=== PATIENT | male | born 1955 | race Caucasian/White ===

== ENCOUNTER 2018-04-28 21:38 | Emergency (ER) | payer OTHER ==
[2018-04-28] MEDS ORDERED: Diphtheria,Pertussis(Acell),Tetanus Vaccine 0.5 ML SDV IM ONE (22:25)
--- NOTE | 2018-04-28 22:56 | EDM.PDOC ---
ED HPI GENERAL MEDICAL PROBLEM - General Chief Complaint: Laceration Stated Complaint: CUT THUMB ON LEFT HAND Time Seen by Provider: 04/28/18 22:23 Source of Information: Reports: Patient, RN Notes Reviewed History Limitations: Reports: No Limitations - History of Present Illness INITIAL COMMENTS - FREE TEXT/NARRATIVE: The patient states that the distal tip of his left thumb was pinched on the hinge side of a trailer door around 21:00 tonight. He is otherwise uninjured. The patient does not recall when his last tetanus vaccination was. The patient does not have a PCP; he and [place] are traveling [place] in [place]. Left 1-Thumb Pain Score (Numeric/FACES): 2 - Related Data Allergies Allergy/AdvReac Type Severity Reaction Status Date / Time KEYLA Inhibitors Allergy Facial Verified 04/28/18 21:56 Swelling Home Meds: Home Meds Aspirin [Ecotrin] 325 mg PO DAILY 04/28/18 [History] Clopidogrel [Plavix] 1 tab PO DAILY 04/28/18 [History] Doxazosin Mesylate [Cardura] 2 mg PO DAILY 04/28/18 [History] Felodipine [Felodipine ER] 5 mg PO DAILY 04/28/18 [History] Fenofibrate,Micronized [Fenofibrate] 130 mg PO DAILY 04/28/18 [History] Fish Oil/[place]-3 Fatty Acids [Fish Oil 1,000 MG] 1 cap PO DAILY 04/28/18 [ History] Levothyroxine 25 mcg PO ACBREAKFAST 04/28/18 [History] Metoprolol Succinate [Toprol XL 50mg] 50 mg PO BID 04/28/18 [History] Pantoprazole Sodium [Protonix] 20 mg PO DAILY 04/28/18 [History] Spironolactone [Aldactone] 25 mg PO DAILY 04/28/18 [History] atorvaSTATin [Lipitor] 80 mg PO BEDTIME 04/28/18 [History] Past Medical History HEENT History: Reports: Impaired Vision Cardiovascular History: Reports: CAD, High Cholesterol, Hypertension, [place] (1996) Gastrointestinal History: Reports: GERD Musculoskeletal History: Reports: Osteoarthritis Endocrine/Metabolic History: Reports: Hypothyroidism - Past Surgical History HEENT Surgical History: Reports: Detached Retina (left), Oral Surgery (wisdom teeth extraction) Cardiovascular Surgical History: Reports: Coronary Artery Stent (x 2) Neurological Surgical History: Reports: Lumbar Spine (L4, L5 discectomy & laminectomy, 1996, 1999) Musculoskeletal Surgical History: Reports: Knee Replacement (right) Social & Family History - Family History Family Medical History: Noncontributory - Tobacco Use Smoking Status *Q: Former Smoker Years of Tobacco use: 10 Packs/Tins Daily: 1.5 Month/Year Tobacco Last Used: Quit 11/02/1981 - Alcohol Use Alcohol Use History: Yes Days Per Week of Alcohol Use: 7 Number of Drinks Per Day: 1 Total Drinks Per Week: 7 Alcohol Use Frequency: Socially - Recreational Drug Use Recreational Drug Use: No - Living Situation & Occupation Living situation: Reports: , with Spouse Occupation: Retired ED ROS GENERAL - Review of Systems Review Of Systems: ROS reveals no pertinent complaints other than HPI. ED EXAM, SKIN/RASH Exam: See Below Exam Limited By: No Limitations General Appearance: Alert, WD/WN, No Apparent Distress Extremities: Other (There is a "C" shaped flap laceration to the tip of the patient's left thumb, measuring approximately 2.0 cm in length, with the attached portion on the volar aspect. There does not appear to be any skin loss , and the flap edges are well approximated. The flap is ecchymotic, but not necessarily devascularized. Neurovascular status of the left thumb is intact.) ED SKIN PROCEDURES - Laceration/Wound Repair Left Hand Lac/Wound length In cm: 2.0 Appearance: Subcutaneous, Irregular (Curvilinear flap), Clean Distal NVT: Neuro & Vascular Intact, No Tendon Injury Exploration/Debridement/Repair: Wound Explored, In a Bloodless Field, No Foreign Material Found, Wound Margins Revised Closed with: Dermabond Sterile Dressing Applied: None Tetanus Status Addressed: Yes Complications: No Course - Vital Signs Last Recorded V/S: Last Vital Signs Temp 36.4 C 04/28/18 21:49 Pulse 60 04/28/18 21:49 Resp 16 04/28/18 21:49 BP 133/85 04/28/18 21:49 Pulse Ox 95 04/28/18 21:49 - Orders/Labs/Meds Orders: Active Orders 24 hr Category Date Time Status Vaccines to be Administered [RC] PER UNIT ROUTINE Care 04/28/18 22:25 Active Meds: Medications Discontinued Medications Generic Name Dose Route Start Last Admin Trade Name Freq PRN Reason Stop Dose Admin Diphtheria/Tetanus/Acell Pertussis 0.5 ml 04/28/18 22:25 04/28/18 22:47 Adacel IM 04/28/18 22:26 0.5 ml .ONCE ONE Administration - Re-Assessments/Exams Free Text/Narrative Re-Assessment/Exam: 04/28/18 22:44 A tourniquet was placed around the patient's thumb to stop the bleeding. The curvilinear flap laceration on the tip of the patient's left thumb was then closed with Dermabond, to good effect. The tourniquet was then removed. In order to allow the Dermabond to properly dry, a dressing was not placed. Additionally, the patient states that the end of the thumb is not all that painful, therefore does not need protection. The patient received a tetanus vaccination during this ED visit. Departure - Departure Time of Disposition: 22:45 Disposition: Home, Self-Care 01 Condition: Good Clinical Impression: Laceration of left thumb - Discharge Information *PRESCRIPTION DRUG MONITORING PROGRAM REVIEWED*: Not Applicable *COPY OF PRESCRIPTION DRUG MONITORING REPORT IN PATIENT NELSON: Not Applicable Instructions: Laceration Care, Adult Referrals: PCP,Not In Area [Primary Care Provider] - Forms: ED Department Discharge Additional Instructions: You were seen in the emergency room after the tip of your left thumb was pinched , causing a flap laceration. The flap laceration was sealed with Dermabond. Keep the wound clean with ordinary bathing. Allow the glue to flake off on its own, but do not pick at the glue. Take [id number] Tylenol or ibuprofen as needed for discomfort. If any other problems, please do not hesitate to return to the ER. - My Orders Last 24 Hours: My Active Orders 04/28/18 22:25 Vaccines to be Administered [RC] PER UNIT ROUTINE - Assessment/Plan Last 24 Hours: My Active Orders 04/28/18 22:25 Vaccines to be Administered [RC] PER UNIT ROUTINE
== END 2018-04-28 23:01 | disposition home or self-care (01) ==
LOC: JD.ED 21:38
DX: S61.012A Laceration without foreign body of left thumb without damage to nail, initial encounter (principal); I10 Essential (primary) hypertension; E78.00 Pure hypercholesterolemia, unspecified; E03.9 Hypothyroidism, unspecified; Z23 Encounter for immunization; Z79.899 Other long term (current) drug therapy; Z87.891 Personal history of nicotine dependence; W23.0XXA Caught, crushed, jammed, or pinched between moving objects, initial encounter
CPT/HCPCS: 12001; 90471; 90715; 99283-25